=== PATIENT | female | born 1965 | race Caucasian/White ===

== ENCOUNTER 2017-09-07 10:25 | Inpatient (IN) | payer OTHER ==
[~2017-09-07] VITALS: Ht 160 cm; Wt 74.0 kg
[2017-09-07 10:37] VITALS: Ht 160 cm; Wt 74.0 kg
[2017-09-07 18:08] LABS: BASOPHIL % 0.4 % (0-2); PLATELET COUNT 313 x10^3mcL (130-400)
[2017-09-07 18:11] LABS: RED CELL DISTRIBUTION WIDTH 15.5 % (11.5-14.5)
[2017-09-07] MEDS ORDERED: NOR10T PO (18:24)
[2017-09-07] MEDS ORDERED: CYMBALTA60 M1 PO (18:24)
[2017-09-07] MEDS ORDERED: GABAPENTIN600 M1 PO (18:24)
[2017-09-07] MEDS ORDERED: LEVOTHYROXINE0.05 M2 PO (18:25)
[2017-09-07] MEDS ORDERED: ZANAFLEX CAPSULE4 MG PO (18:25)
[2017-09-07] MEDS ORDERED: CELEBREX200 MG PO (18:25)
[2017-09-07] MEDS ORDERED: PROTONIX20 MG PO (18:25)
[2017-09-07] MEDS ORDERED: LOVASTATIN20 MG PO (18:26)
[2017-09-07 18:35] LABS: CALCIUM 8.9 mg/dL (8.5-10.1); CARBON DIOXIDE 26.7 mmol/L (21-32); CHLORIDE SERUM 105 mmol/L (98-107); CREATININE SERUM 0.7 mg/dL (0.6-1.0); GFR1 > 60 mL/min; GLUCOSE SERUM 107 mg/dL (74-106); POTASSIUM SERUM 3.3 mmol/L (3.5-5.1); SODIUM SERUM 141 mmol/L (136-145)
[2017-09-07 18:40] LABS: ALBUMIN 3.6 g/dL (3.4-5.0); ALKALINE PHOSPHATASE 92 U/L (46-116); ALT/SGPT 60 U/L (14-59); AST/SGOT 29 U/L (15-37); BILIRUBIN TOTAL 0.3 mg/dL (0.20-1.00); TOTAL PROTEIN, SERUM 7.8 g/dL (6.4-8.2)
[2017-09-07 19:12] LABS: CHOLESTEROL/HDL RATIO 4.3; MAGNESIUM 2.5 mg/dL (1.8-2.4); PHOSPHOROUS 3.5 mg/dL (2.5-4.9)
[2017-09-07 19:24] LABS: T3 TOTAL 1.23 ng/mL
[2017-09-07 19:26] LABS: FREE T4 1.5 ng/dL (0.76-1.46)
[2017-09-07 19:27] LABS: FREE THYROXINE INDEX 4.8 ug/dL (1.4-4.5); T4(THYROXINE) 13.8 ug/dL (4.7-13.3)
[2017-09-07 19:28] VITALS: BP 127/79
[2017-09-08 05:54] VITALS: BP 97/46
[2017-09-08 06:25] LABS: BASOPHIL % 0.2 % (0-2); PLATELET COUNT 292 x10^3mcL (130-400)
[2017-09-08 06:43] LABS: CALCIUM 8.7 mg/dL (8.5-10.1); CARBON DIOXIDE 24.8 mmol/L (21-32); CHLORIDE SERUM 107 mmol/L (98-107); CREATININE SERUM 0.9 mg/dL (0.6-1.0); GFR1 > 60 mL/min; GLUCOSE SERUM 156 mg/dL (74-106); MAGNESIUM 2.2 mg/dL (1.8-2.4); PHOSPHOROUS 2.3 mg/dL (2.5-4.9); POTASSIUM SERUM 4.1 mmol/L (3.5-5.1); SODIUM SERUM 141 mmol/L (136-145)
[2017-09-08 06:44] LABS: RED CELL DISTRIBUTION WIDTH 15.2 % (11.5-14.5)
[2017-09-08 08:14] VITALS: BP 99/45
[2017-09-08 12:59] VITALS: BP 114/55
[2017-09-08 15:54] LABS: UA SPECIFIC GRAVITY <=1.005 (1.005-1.035); microscopic required? YES; urine erythrocyte NEGATIVE (NEGATIVE)
[2017-09-08 16:54] LABS: AMPHETAMINE QUAL UR NONE DETECTED (NEG <=1000)
[2017-09-08 18:09] VITALS: BP 122/58
[2017-09-08 21:33] VITALS: BP 118/61
[2017-09-09] VITALS (8 sets, daily range): BP systolic 90–132; BP diastolic 41–72
[2017-09-09 06:54] LABS: CALCIUM 8.4 mg/dL (8.5-10.1); CARBON DIOXIDE 25.4 mmol/L (21-32); CHLORIDE SERUM 107 mmol/L (98-107); CREATININE SERUM 0.7 mg/dL (0.6-1.0); GFR1 > 60 mL/min; GLUCOSE SERUM 113 mg/dL (74-106); PHOSPHOROUS 2.9 mg/dL (2.5-4.9); POTASSIUM SERUM 3.8 mmol/L (3.5-5.1); SODIUM SERUM 140 mmol/L (136-145)
[2017-09-10] VITALS (7 sets, daily range): BP systolic 95–131; BP diastolic 42–74
[2017-09-10 15:07] LABS: BASOPHIL % 0.4 % (0-2); PLATELET COUNT 304 x10^3mcL (130-400)
[2017-09-10 15:09] LABS: RED CELL DISTRIBUTION WIDTH 15.6 % (11.5-14.5)
[2017-09-11 05:56] VITALS: BP 114/63
[2017-09-11 06:37] LABS: BASOPHIL % 0.6 % (0-2); PLATELET COUNT 316 x10^3mcL (130-400)
[2017-09-11 06:53] LABS: RED CELL DISTRIBUTION WIDTH 15.5 % (11.5-14.5)
[2017-09-11 06:57] LABS: CALCIUM 8.8 mg/dL (8.5-10.1); CARBON DIOXIDE 30.1 mmol/L (21-32); CHLORIDE SERUM 103 mmol/L (98-107); CREATININE SERUM 0.8 mg/dL (0.6-1.0); GFR1 > 60 mL/min; GLUCOSE SERUM 97 mg/dL (74-106); POTASSIUM SERUM 3.6 mmol/L (3.5-5.1); SODIUM SERUM 141 mmol/L (136-145)
[2017-09-11 10:35] VITALS: BP 112/57
[2017-09-11 13:25] VITALS: BP 94/54
[2017-09-11 18:17] VITALS: BP 116/72
[2017-09-11 21:11] VITALS: BP 128/72
[2017-09-12 05:30] VITALS: BP 126/76
[2017-09-12 09:00] VITALS: BP 102/52
[2017-09-12 17:50] VITALS: BP 129/72
[2017-09-12 20:37] VITALS: BP 124/71
[2017-09-13 05:03] VITALS: BP 137/71
[2017-09-13 09:48] VITALS: BP 113/48
[2017-09-13] MEDS ORDERED: METHOCARBAMOL500 MG PO (13:13)
[2017-09-13] MEDS ORDERED: PRA20 PO (13:13)
[2017-09-13] MEDS ORDERED: HEP5I SC (13:13)
[2017-09-13 17:35] VITALS: BP 121/53
[2017-09-13 22:23] VITALS: BP 112/49
[2017-09-14 06:24] VITALS: BP 120/55
[2017-09-14 06:45] LABS: BASOPHIL % 0.8 % (0-2); PLATELET COUNT 359 x10^3mcL (130-400)
[2017-09-14 06:48] LABS: ALBUMIN 3.3 g/dL (3.4-5.0); CALCIUM 8.7 mg/dL (8.5-10.1); CARBON DIOXIDE 26.9 mmol/L (21-32); CHLORIDE SERUM 105 mmol/L (98-107); CREATININE SERUM 0.8 mg/dL (0.6-1.0); GFR1 > 60 mL/min; GLUCOSE SERUM 107 mg/dL (74-106); MAGNESIUM 2.2 mg/dL (1.8-2.4); PHOSPHOROUS 3.6 mg/dL (2.5-4.9); POTASSIUM SERUM 3.8 mmol/L (3.5-5.1); RED CELL DISTRIBUTION WIDTH 14.7 % (11.5-14.5); SODIUM SERUM 142 mmol/L (136-145)
[2017-09-14 09:08] VITALS: BP 130/48
[2017-09-14] MEDS ORDERED: PYR100 PO (10:35)
[2017-09-14] MEDS ORDERED: Levofloxacin IV (10:43)
[2017-09-14] MEDS ORDERED: KETOROLAC TR15 MG/M1 IV (10:58)
[2017-09-14 15:15] VITALS: BP 130/48
[2017-09-14 17:55] VITALS: BP 137/67
== END 2017-09-14 19:02 | DRG 552 ==
LOC: ED 10:25 → MU 18:08 → DU 18:08 → MU 09-11 23:33
PROVIDERS: Family Medicine; Specialist
DX: M46.47 Discitis, unspecified, lumbosacral region (principal); N39.0 Urinary tract infection, site not specified; E44.0 Moderate protein-calorie malnutrition; G95.9 Disease of spinal cord, unspecified; B96.1 Klebsiella pneumoniae [K. pneumoniae] as the cause of diseases classified elsewhere; T14.90XS Injury, unspecified, sequela; N31.9 Neuromuscular dysfunction of bladder, unspecified; M54.30 Sciatica, unspecified side; G54.0 Brachial plexus disorders; R73.03 Prediabetes; E87.6 Hypokalemia; E83.41 Hypermagnesemia; E83.39 Other disorders of phosphorus metabolism; E78.5 Hyperlipidemia, unspecified; E03.9 Hypothyroidism, unspecified; F32.9 Major depressive disorder, single episode, unspecified; Z68.23 Body mass index [BMI] 23.0-23.9, adult; Z79.891 Long term (current) use of opiate analgesic; W10.8XXS Fall (on) (from) other stairs and steps, sequela
CPT/HCPCS: 36600; 83880; 84439; 97110-GP; 97116-GP; 97530-GP; J1100; J1170; J1644; J1885; J1956; J2270; J2405; J2930; J7030; Q0092

== ENCOUNTER 2018-11-09 10:27 | Emergency (ER) | payer SELFPAY ==
[~2018-11-09] VITALS: Ht 154.9 cm; Wt 83.9 kg
[~2018-11-09 10:27] MED LIST: CELEBREX200 MG PO; CYMBALTA60 M1 PO; GABAPENTIN600 M1 PO; HEP5I SC; KETOROLAC TR15 MG/M1 IV; LEVOTHYROXINE0.05 M2 PO; LOVASTATIN20 MG PO; Levofloxacin IV; METHOCARBAMOL500 MG PO; NOR10T PO; PRA20 PO; PROTONIX20 MG PO; PYR100 PO; ZANAFLEX CAPSULE4 MG PO
[2018-11-09 10:30] VITALS: Ht 154.9 cm; Wt 83.9 kg
[2018-11-09 12:26] VITALS: BP 121/62
== END 2018-11-09 12:26 | disposition home or self-care (01) ==
LOC: ED 10:27
DX: J06.9 Acute upper respiratory infection, unspecified (principal); R51 Headache; I10 Essential (primary) hypertension; E78.00 Pure hypercholesterolemia, unspecified; E03.9 Hypothyroidism, unspecified; G89.29 Other chronic pain; M54.5 Low back pain
CPT/HCPCS: J1885